=== PATIENT | male | born 1980 | race Caucasian/White ===

== ENCOUNTER 2022-11-14 11:18 | Emergency (ER) | payer MEDICAID ==
[~2022-11-14] VITALS: Ht 172.7 cm; Wt 75.0 kg
[2022-11-14 16:50] VITALS: BP 137/91
[2022-11-14] MEDS ORDERED: VISCOUS LIDOCAINE 2% 15 ML UDC PO STA (16:50)
[2022-11-14] MEDS ORDERED: IBUPROFEN 600MG TABLET PO STA (16:50)
[2022-11-14] MEDS ORDERED: DICYCLOMINE 10 MG/5 ML ORAL SYR PO STA (16:50)
[2022-11-14] MEDS ORDERED: MAGNESIUM/ALUMINUM HYDROXIDE/SIMETHICONE 30ML UDC PO STA ×2 (16:50)
[2022-11-14 17:00] LABS: BASOPHILS % 0.3 % (0.0-2.0); EOSINOPHILS % 2.8 % (0.0-5.0); HEMOGLOBIN. 15.4 g/dL (14.0-18.0); MEAN CORPUSCULAR HEMOGLOBIN 27.7 pg (28.0-32.0); MEAN CORPUSCULAR VOLUME 82.9 fL (80.0-94.0); MONOCYTES % 5.6 % (2.0-8.0); NEUTROPHILS % 77.3 % (40.0-76.0); PLATELET 196 x1000/uL (130-400); RED BLOOD CELL COUNT 5.55 mill/uL (4.7-6.1); RED CELL DISTRIBUTION WIDTH 14.1 % (11.6-14.6)
[2022-11-14 17:05] LABS: INR 1.1; PROTHROMBIN TIME 11.3 sec (9.6-11.0)
[2022-11-14 17:09] LABS: CHLORIDE 106 mEq/L (98-107)
[2022-11-14] MEDS ORDERED: FAMO-135 MT (18:30)
== END 2022-11-14 19:05 | disposition home or self-care (01) ==
LOC: ER 11:18
DX: K29.70 Gastritis, unspecified, without bleeding (principal)
CPT/HCPCS: 36415; 76705; 80053; 85025; 99284